=== PATIENT | female | born 1940 | race Caucasian/White ===

== ENCOUNTER 2016-11-01 13:24 | Outpatient (CLI) | payer MEDICARE ==
[2016-11-03 18:10] LABS: Hep C PCR-Quant HCV Not Detected IU/mL (.)
== END 2016-11-01 13:25 | disposition home or self-care (01) ==
LOC: MADLAB 13:24
PROVIDERS: ATTEND Physician Assistant Medical
DX: B18.2 Chronic viral hepatitis C (principal)
CPT/HCPCS: 36415; 87522

== ENCOUNTER 2017-04-30 16:14 | Outpatient (CLI) | payer MEDICARE ==
[2017-04-30 16:59] LABS: ALT (SGPT) 16 U/L (8-55); AST (SGOT) 20 U/L (5-34); Albumin 4.2 g/dL (3.4-4.8); Alkaline Phosphatase 90 U/L (40-150); Anion Gap 13 mmol/L (10-20); BUN (Urea Nitrogen) 11 mg/dL (9.8-20.1); Bilirubin, Total Less than 0.3 mg/dL (0.2-1.2); Calc. Creatinine Clearance 0 mL/min (70-130); Calcium 9.6 mg/dL (7.8-10.44); Carbon Dioxide 26 mmol/L (23-31); Chloride 103 mmol/L (98-107); Estimated GFR-MDRD 61; Globulin 3.5 g/dL (2.4-3.5); Glucose 102 mg/dL (83-110); Potassium 3.6 mmol/L (3.5-5.1); Protein, Total 7.7 g/dL (6.0-8.3); Sodium 138 mmol/L (136-145)
[2017-04-30 18:17] LABS: #Basophils 0.1 thou/uL (0.0-0.2); #Eosinphils 0.1 thou/uL (0.0-0.7); #Lymphocytes 1.8 thou/uL (1.20-3.40); #Monocytes 0.7 thou/uL (0.11-0.59); #Neutrophils 3.5 thou/uL (1.40-6.50); %Basophils 0.8 % (0.0-1.0); %Eosinophils 1.1 % (0.0-10.0); %Lymphocytes 29.6 % (21.0-51.0); %Monocytes 11.9 % (0.0-10.0); %Neutrophils 56.5 % (42.0-75.0); Hemoglobin 13.3 g/dL (12.0-16.0); Mean Corpuscular Hemoglobin 32.1 pg (27.0-31.0); Mean Corpuscular Volume 94.4 fl (81.0-99.0); Mean Platelet Volume 9.2 fL (7.4-10.4); PLT Morphology Comment Appears Decreased; Platelet Count 105 thou/uL (130-400); RBC Distribution Width 11.6 % (11.5-14.5); Red Blood Cell (RBC) Count 4.13 mill/uL (4.20-5.40); White Blood Cell (WBC) Count 6.2 thou/uL (4.8-10.8)
[2017-05-04 16:14] LABS: Hep C PCR-Quant HCV Not Detected IU/mL (.)
== END 2017-04-30 16:15 | disposition home or self-care (01) ==
LOC: MADLAB 16:14
PROVIDERS: ATTEND Physician Assistant Medical
DX: B18.2 Chronic viral hepatitis C (principal)
CPT/HCPCS: 36415; 80053; 82105; 85025; 87522

== ENCOUNTER 2022-09-22 15:37 | Inpatient (IN) | payer MEDICARE ==
[2022-09-22] MEDS ORDERED: traMADol HCl 50 MG TAB PO PRN (16:38)
[2022-09-22] MEDS ORDERED: Loratadine 10 MG TAB PO PRN (16:38)
[2022-09-22] MEDS ORDERED: Senokot S 8.6-50 MG TAB PO PRN (16:54)
[2022-09-22] MEDS ORDERED: Acetaminophen 325 MG TAB PO SCH (17:00)
[2022-09-22] MEDS ORDERED: Cyclobenzaprine 10 MG TAB PO SCH ×2 (18:00→21:00)
[2022-09-22] MEDS ORDERED: Acetaminophen 325 MG TAB PO PRN (18:00)
[2022-09-22] MEDS: Aspirin 81 mg Enteric Coated Tablet PO SCH (21:49)
[2022-09-22] MEDS: Calcium Carbonate 500 MG TAB PO SCH (21:49)
[2022-09-22] MEDS: Fish Oil 1,000 MG CAP PO SCH (21:49)
[2022-09-22] MEDS: Gabapentin 300 MG CAP PO SCH (21:49)
[2022-09-22] MEDS: traMADol HCl 50 MG TAB PO PRN (23:47)
[2022-09-23] MEDS: Fish Oil 1,000 MG CAP PO SCH ×2 (08:41→20:49)
[2022-09-23] MEDS: Aspirin 81 mg Enteric Coated Tablet PO SCH ×2 (08:41→20:50)
[2022-09-23] MEDS: Polyethylene Glycol 3350 17 GM Packet PO SCH (08:41)
[2022-09-23] MEDS: Cyanocobalamin (Vitamin B-12) 1,000 MCG TAB PO SCH (08:42)
[2022-09-23] MEDS: Ferrous Sulfate 325 MG TAB PO SCH (08:42)
[2022-09-23] MEDS: Gabapentin 300 MG CAP PO SCH ×2 (08:42→20:49)
[2022-09-23] MEDS: Multivit, Therapeutic 1 TAB PO SCH (08:42)
[2022-09-23] MEDS: Magnesium Oxide 400 MG TAB PO SCH (08:42)
[2022-09-23] MEDS: Calcium Carbonate 500 MG TAB PO SCH ×2 (08:42→20:50)
[2022-09-23] MEDS: Floranex 1 GM Packet PO SCH (08:42)
[2022-09-23] MEDS: Ascorbic Acid 500 mg Chewable Tablet PO SCH (08:42)
[2022-09-23] MEDS: Cholecalciferol 1,000 UNITS (25 MCG) TAB PO SCH (08:43)
[2022-09-23] MEDS: traMADol HCl 50 MG TAB PO PRN (16:29)
[2022-09-23] MEDS: Cyclobenzaprine 10 MG TAB PO SCH (20:50)
[2022-09-24] MEDS: Multivit, Therapeutic 1 TAB PO SCH (08:27)
[2022-09-24] MEDS: Cyanocobalamin (Vitamin B-12) 1,000 MCG TAB PO SCH (08:27)
[2022-09-24] MEDS: Calcium Carbonate 500 MG TAB PO SCH ×2 (08:27→20:45)
[2022-09-24] MEDS: Cholecalciferol 1,000 UNITS (25 MCG) TAB PO SCH (08:27)
[2022-09-24] MEDS: Ferrous Sulfate 325 MG TAB PO SCH (08:27)
[2022-09-24] MEDS: Aspirin 81 mg Enteric Coated Tablet PO SCH ×2 (08:27→20:45)
[2022-09-24] MEDS: Ascorbic Acid 500 mg Chewable Tablet PO SCH (08:27)
[2022-09-24] MEDS: Floranex 1 GM Packet PO SCH (08:27)
[2022-09-24] MEDS: Fish Oil 1,000 MG CAP PO SCH ×2 (08:27→20:45)
[2022-09-24] MEDS: Magnesium Oxide 400 MG TAB PO SCH (08:27)
[2022-09-24] MEDS: Gabapentin 300 MG CAP PO SCH ×2 (08:29→20:45)
[2022-09-24] MEDS: Polyethylene Glycol 3350 17 GM Packet PO SCH (08:30)
[2022-09-24] MEDS: Cyclobenzaprine 10 MG TAB PO SCH (20:45)
[2022-09-24] MEDS: traMADol HCl 50 MG TAB PO PRN (20:46)
[2022-09-25 05:59] LABS: #Basophils 0.1 thou/uL (0.0-0.2); #Eosinphils 0.2 thou/uL (0.0-0.7); #Lymphocytes 1.2 thou/uL (1.20-3.40); #Monocytes 0.7 thou/uL (0.11-0.59); #Neutrophils 4.6 thou/uL (1.40-6.50); %Basophils 1.9 % (0.0-1.0); %Eosinophils 2.7 % (0.0-10.0); %Lymphocytes 17.8 % (21.0-51.0); %Monocytes 10.8 % (0.0-10.0); %Neutrophils 66.8 % (42.0-75.0); Hemoglobin 8.6 g/dL (12.0-16.0); Mean Corpuscular HGB CONC 33.9 g/dL (32.0-36.0); Mean Corpuscular Hemoglobin 32.1 pg (27.0-31.0); Mean Corpuscular Volume 94.5 fl (78.0-98.0); Mean Platelet Volume 5.9 fL (7.4-10.4); Platelet Count 220 10x3/uL (130-400); RBC Distribution Width 11.7 % (11.5-14.5); Red Blood Cell (RBC) Count 2.69 mill/uL (4.20-5.40); White Blood Cell (WBC) Count 6.9 10x3/uL (4.8-10.8)
[2022-09-25 06:25] LABS: Anion Gap 14 mmol/L (10-20); BUN (Urea Nitrogen) 15 mg/dL (9.8-20.1); Calc. Creatinine Clearance 70 mL/min (70-130); Calcium 8.9 mg/dL (7.8-10.44); Carbon Dioxide 25 mmol/L (23-31); Chloride 103 mmol/L (98-107); Estimated GFR 75; Glucose 93 mg/dL (83-110); Potassium 3.6 mmol/L (3.5-5.1); Sodium 138 mmol/L (136-145)
[2022-09-25] MEDS: Floranex 1 GM Packet PO SCH (08:09)
[2022-09-25] MEDS: Aspirin 81 mg Enteric Coated Tablet PO SCH ×2 (08:09→20:29)
[2022-09-25] MEDS: Ascorbic Acid 500 mg Chewable Tablet PO SCH (08:09)
[2022-09-25] MEDS: Fish Oil 1,000 MG CAP PO SCH ×2 (08:09→20:29)
[2022-09-25] MEDS: Ferrous Sulfate 325 MG TAB PO SCH (08:09)
[2022-09-25] MEDS: Magnesium Oxide 400 MG TAB PO SCH (08:10)
[2022-09-25] MEDS: Cyanocobalamin (Vitamin B-12) 1,000 MCG TAB PO SCH (08:10)
[2022-09-25] MEDS: Cholecalciferol 1,000 UNITS (25 MCG) TAB PO SCH (08:10)
[2022-09-25] MEDS: Calcium Carbonate 500 MG TAB PO SCH ×2 (08:10→20:29)
[2022-09-25] MEDS: Gabapentin 300 MG CAP PO SCH ×2 (08:10→20:28)
[2022-09-25] MEDS: Multivit, Therapeutic 1 TAB PO SCH (08:11)
[2022-09-25] MEDS: Polyethylene Glycol 3350 17 GM Packet PO SCH (08:11)
[2022-09-25] MEDS: traMADol HCl 50 MG TAB PO PRN ×2 (09:40→20:27)
[2022-09-25] MEDS: Cyclobenzaprine 10 MG TAB PO SCH (20:27)
[2022-09-26] MEDS: Floranex 1 GM Packet PO SCH (08:55)
[2022-09-26] MEDS: Polyethylene Glycol 3350 17 GM Packet PO SCH (08:55)
[2022-09-26] MEDS: Cyanocobalamin (Vitamin B-12) 1,000 MCG TAB PO SCH (08:57)
[2022-09-26] MEDS: Ascorbic Acid 500 mg Chewable Tablet PO SCH (08:57)
[2022-09-26] MEDS: Ferrous Sulfate 325 MG TAB PO SCH (08:57)
[2022-09-26] MEDS: Calcium Carbonate 500 MG TAB PO SCH ×2 (08:57→19:13)
[2022-09-26] MEDS: Aspirin 81 mg Enteric Coated Tablet PO SCH ×2 (08:57→19:13)
[2022-09-26] MEDS: Gabapentin 300 MG CAP PO SCH ×2 (08:57→19:14)
[2022-09-26] MEDS: Magnesium Oxide 400 MG TAB PO SCH (08:57)
[2022-09-26] MEDS: Fish Oil 1,000 MG CAP PO SCH ×2 (08:57→19:14)
[2022-09-26] MEDS: Multivit, Therapeutic 1 TAB PO SCH (08:57)
[2022-09-26] MEDS: Cholecalciferol 1,000 UNITS (25 MCG) TAB PO SCH (09:05)
[2022-09-26] MEDS: Cyclobenzaprine 10 MG TAB PO SCH (19:13)
[2022-09-27] MEDS: traMADol HCl 50 MG TAB PO PRN ×2 (01:50→23:43)
[2022-09-27] MEDS: Fish Oil 1,000 MG CAP PO SCH ×2 (08:15→20:03)
[2022-09-27] MEDS: Aspirin 81 mg Enteric Coated Tablet PO SCH ×2 (08:15→20:03)
[2022-09-27] MEDS: Floranex 1 GM Packet PO SCH (08:15)
[2022-09-27] MEDS: Multivit, Therapeutic 1 TAB PO SCH (08:15)
[2022-09-27] MEDS: Ferrous Sulfate 325 MG TAB PO SCH (08:15)
[2022-09-27] MEDS: Magnesium Oxide 400 MG TAB PO SCH (08:15)
[2022-09-27] MEDS: Cyanocobalamin (Vitamin B-12) 1,000 MCG TAB PO SCH (08:15)
[2022-09-27] MEDS: Calcium Carbonate 500 MG TAB PO SCH ×2 (08:16→20:03)
[2022-09-27] MEDS: Gabapentin 300 MG CAP PO SCH ×2 (08:16→20:03)
[2022-09-27] MEDS: Cholecalciferol 1,000 UNITS (25 MCG) TAB PO SCH (08:16)
[2022-09-27] MEDS: Ascorbic Acid 500 mg Chewable Tablet PO SCH (08:16)
[2022-09-27] MEDS: Polyethylene Glycol 3350 17 GM Packet PO SCH (08:19)
[2022-09-27] MEDS: Cyclobenzaprine 10 MG TAB PO SCH (20:03)
[2022-09-28] MEDS: Calcium Carbonate 500 MG TAB PO SCH ×2 (08:40→20:29)
[2022-09-28] MEDS: Floranex 1 GM Packet PO SCH (08:40)
[2022-09-28] MEDS: Magnesium Oxide 400 MG TAB PO SCH (08:40)
[2022-09-28] MEDS: Fish Oil 1,000 MG CAP PO SCH ×2 (08:41→20:29)
[2022-09-28] MEDS: Aspirin 81 mg Enteric Coated Tablet PO SCH ×2 (08:41→20:29)
[2022-09-28] MEDS: Multivit, Therapeutic 1 TAB PO SCH (08:41)
[2022-09-28] MEDS: Ferrous Sulfate 325 MG TAB PO SCH (08:41)
[2022-09-28] MEDS: Ascorbic Acid 500 mg Chewable Tablet PO SCH (08:41)
[2022-09-28] MEDS: Gabapentin 300 MG CAP PO SCH ×2 (08:41→20:29)
[2022-09-28] MEDS: Cyanocobalamin (Vitamin B-12) 1,000 MCG TAB PO SCH (08:41)
[2022-09-28] MEDS: Cholecalciferol 1,000 UNITS (25 MCG) TAB PO SCH (08:42)
[2022-09-28] MEDS: Polyethylene Glycol 3350 17 GM Packet PO SCH (08:42)
[2022-09-28] MEDS: Cyclobenzaprine 10 MG TAB PO SCH (20:29)
[2022-09-29 07:29] VITALS: BP 108/73; TEMP 98.3
[2022-09-29] MEDS: Fish Oil 1,000 MG CAP PO SCH (08:24)
[2022-09-29] MEDS: Floranex 1 GM Packet PO SCH (08:24)
[2022-09-29] MEDS: Gabapentin 300 MG CAP PO SCH (08:24)
[2022-09-29] MEDS: Calcium Carbonate 500 MG TAB PO SCH (08:25)
[2022-09-29] MEDS: Cyanocobalamin (Vitamin B-12) 1,000 MCG TAB PO SCH (08:25)
[2022-09-29] MEDS: Ascorbic Acid 500 mg Chewable Tablet PO SCH (08:25)
[2022-09-29] MEDS: Ferrous Sulfate 325 MG TAB PO SCH (08:25)
[2022-09-29] MEDS: Multivit, Therapeutic 1 TAB PO SCH (08:25)
[2022-09-29] MEDS: Aspirin 81 mg Enteric Coated Tablet PO SCH (08:25)
[2022-09-29] MEDS: Magnesium Oxide 400 MG TAB PO SCH (08:25)
[2022-09-29] MEDS: Polyethylene Glycol 3350 17 GM Packet PO SCH (08:26)
[2022-09-29] MEDS: Cholecalciferol 1,000 UNITS (25 MCG) TAB PO SCH (08:26)
== END 2022-09-29 16:15 | disposition home or self-care (01) | DRG 561 ==
LOC: MADMS 15:37
PROVIDERS: ADMIT Family Medicine; ATTEND Family Medicine
DX: Z47.1 Aftercare following joint replacement surgery (principal); G89.4 Chronic pain syndrome; M81.0 Age-related osteoporosis without current pathological fracture; G62.9 Polyneuropathy, unspecified; Z96.642 Presence of left artificial hip joint; D64.9 Anemia, unspecified; R53.81 Other malaise; R26.81 Unsteadiness on feet; Z66 Do not resuscitate; M16.12 Unilateral primary osteoarthritis, left hip; Z20.822 Contact with and (suspected) exposure to COVID-19; Z98.890 Other specified postprocedural states; Z79.899 Other long term (current) drug therapy; Z90.49 Acquired absence of other specified parts of digestive tract; Z90.710 Acquired absence of both cervix and uterus
CPT/HCPCS: 80048; 85025; 87811